=== PATIENT | female | born 1995 | race African-American/Black ===

== ENCOUNTER 2019-06-19 16:53 | Observation (INO) | payer SELFPAY ==
[~2019-06-19] VITALS: Ht 162.6 cm; Wt 77.4 kg
[~2019-06-19 16:53] MED LIST: DEPO-PROVER400 MG/ML IM; FLEXERIL 1010 MG/TAB PO; NORCO 325 MG-51 TAB PO; ULTRAM 50MG TAB50 MG PO; ZOFRAN 4MG T4 MG/TAB PO; ZOFRAN ODT4 MG PO
[2019-06-19 17:36] LABS: BASO # 0.1 (0.0-0.2); BASO % 0.4 % (0.0-2.0); EOS # 0.1 (0.0-0.7); EOS % 0.6 % (0-4.0); GRAN % 77.1 % (42.2-75.2); HEMOGLOBIN 11.4 g/dl (12.5-16.0); LYMPH # 1.6 (1.2-3.4); LYMPH % 12.5 % (20.0-51.0); MEAN CELL VOLUME 86 fl (80.0-100.0); MEAN CORPUSCULAR HEMOGLOBIN 28 pg (27.0-31.0); MEAN CORPUSCULAR HGB CONC 32 g/dl (33.0-37.0); MEAN PLATELET VOLUME 9.2 fl (7.4-10.4); MONO # 1.2 (0.1-0.6); RED BLOOD COUNT 4.09 M/mm3 (4.10-5.30); REDCELL DISTRIBUTION WIDTH-CV 13.8 % (11.5-14.5)
[2019-06-19 17:41] LABS: HEMATOCRIT 35.2 % (37.0-47.0); PLATELET COUNT 602 K/mm3 (130-400)
[2019-06-19 17:43] LABS: ALANINE AMINOTRANSFERASE 17 U/L (9-52); ALBUMIN 3.9 gm/dL (3.5-5.0); ALKALINE PHOSPHATASE 101 U/L (50-136); ANION GAP 12 mmol/L (7-16); AST,SGOT 31 U/L (15-37); BILIRUBIN,TOTAL 0.4 mg/dL (0.0-1.0); BLOOD UREA NITROGEN 3 mg/dL (7-17); CALCIUM 9.5 mg/dL (8.4-10.2); CARBON DIOXIDE 25 mmol/L (22-30); CHLORIDE 100 mmol/L (98-107); CREATININE, serum 0.43 (0.52-1.25); GLUCOSE 66 mg/dL (74-106); LIPASE < 10 U/L (23-300); POTASSIUM 3.8 mmol/L (3.4-5.0); SODIUM 137 mmol/L (137-145); TOTAL PROTEIN 8.1 gm/dL (6.4-8.2)
[2019-06-19 17:56] LABS: C-REACTIVE PROTEIN 22.1 mg/dL (0.0-0.9)
[2019-06-19 18:53] LABS: COLLECTION METHOD CLEAN CATCH
[2019-06-19 19:02] LABS: MUCOUS Present /lpf; PH 6 (5-8); SQUAMOUS EPITHELIAL 0-2 /hpf; URINE APPEARANCE Clear; URINE BACTERIA None Seen /hpf; URINE BILIRUBIN Negative (NEGATIVE); URINE BLOOD Negative (NEGATIVE); URINE COLOR Yellow; URINE GLUCOSE Negative (NEGATIVE); URINE KETONE 2+ (NEGATIVE); URINE LEUKOCYTE ESTERASE Negative (NEGATIVE); URINE NITRATE Negative (NEGATIVE); URINE PROTEIN(semi-quant) Negative (NEGATIVE); URINE RBC 0-2 /hpf
[2019-06-19 20:28] VITALS: BP 121/72; PULSE 93; TEMP 98.3
--- NOTE | 2019-06-19 21:20 | NUR ---
Patient arrived to medical floor at 2029. Assessment complete. Lungs clear. Heart sounds normal. Bowels active x4. Pulses strong throughout. No edema noted. Rating ABD pain 9/10 provided with PRN morphine. Also reports nausea. Provided with PRN zofran. INT to right AC without complications. Orientated to medical floor. All questions answered. Denies needs at this time. Call light in reach.
--- NOTE | 2019-06-19 23:07 | NUR ---
Patient reports increased pain 1 hour after dose of morphine. Spoke with Dr. Cortez discontinue morphine and change to dilaudid 1mg Q4H PRN pain. Will provide to patient
[2019-06-19 23:54] VITALS: BP 123/85; PULSE 103; TEMP 99.1
--- NOTE | 2019-06-20 00:13 | NUR ---
Resting in bed. Call light in reach.
--- NOTE | 2019-06-20 01:16 | NUR ---
Patient crying and screaming due to upper right ABD pain 10/10. Radiating to chest, and feels like "I cant breathe." VS stable. Warm pack provided. Spoke with Dr. Cortez. Patient having increased anxiety. repeat dilaudid dose now and add ativan 0.5 mg Q6H PRN. Will provide to patient.
--- NOTE | 2019-06-20 01:33 | NUR ---
After adminstration of dilaudid and ativan patient stated "I think my chest pain is because my breast are so heavy." Provided with warm pack and extra pillows. Denies other needs. Call light in reach.
[2019-06-20 03:31] VITALS: BP 117/76; PULSE 117; TEMP 99.4
--- NOTE | 2019-06-20 05:42 | NUR ---
Patient received morphine 2117. Reported increased pain by 2229. Spoke with Dr. Cortez. Orders to discontinue morphine and change to dilaudid given. Provided patient with dilaudid at 2318. 0110 patient screaming and tearful in pain. Stating severe ABD pain radiating to chest and difficulty breathing. Patient appears anxious. Provided warm pack at this time. Spoke with Dr. Cortez, order for one time dose of dilaudid and to start PRN ativan Q6H. Provided to patient. Patient stated after administration of medications "I think my chest pain is because my breast are so heavy." Patient able to rest well after. Otherwise uneventful night. Resting in bed this AM. Call light in reach.
--- NOTE | 2019-06-20 07:07 | NUR ---
Report given to ORI Lemons
[2019-06-20 08:25] VITALS: BP 125/82; PULSE 110; TEMP 98.8
--- NOTE | 2019-06-20 08:35 | NUR ---
Pt calls out for pain medication. Pt curled over in bed yelling in pain. She states her pain is a 10/10. Given PRN dilaudid and heat pack. Pt also appears very anxious, hyperventilating and stating she cant breath. Breathing techniques reviewed with pt along with giving her PRN ativan. Pt the requests popsicle and apple juice.
--- NOTE | 2019-06-20 08:45 | NUR ---
Pt appears to be more relaxed, laying in bed. States pain has improved, rating 7/10. Updated on plan of care includidng EGD this afternoon. NPO after [address] Cortez. Denies any other needs.
[2019-06-20 09:37] LABS: BASO % 0.3 % (0.0-2.0); EOS % 0.1 % (0-4.0); GRAN % 82.9 % (42.2-75.2); HEMOGLOBIN 10.7 g/dl (12.5-16.0); LYMPH # 1.2 (1.2-3.4); LYMPH % 8.7 % (20.0-51.0); MEAN CELL VOLUME 86 fl (80.0-100.0); MEAN CORPUSCULAR HEMOGLOBIN 28 pg (27.0-31.0); MEAN CORPUSCULAR HGB CONC 33 g/dl (33.0-37.0); MEAN PLATELET VOLUME 9.1 fl (7.4-10.4); MONO % 7.5 % (1.7-9.3); PLATELET COUNT 541 K/mm3 (130-400); RED BLOOD COUNT 3.85 M/mm3 (4.10-5.30); REDCELL DISTRIBUTION WIDTH-CV 13.8 % (11.5-14.5)
--- NOTE | 2019-06-20 09:39 | NUR ---
SW met with patient to discuss discharge planning. Patient lives independently at home with her sister. Patient does not have a PCP but would like to be scheduled with a provider from the [facility]. Patient obtains medications from [facility] Patient reports she has had issues in the past with obtaining medications but no difficulties currently. SW reported that the [facility] can provide medication assistance. Patient is independent with ADLs and does not require any DME or home health services. SW does not anticipate any discharge needs.
[2019-06-20 09:41] LABS: HEMATOCRIT 32.9 % (37.0-47.0)
[2019-06-20 09:43] LABS: ALANINE AMINOTRANSFERASE 19 U/L (9-52); ALBUMIN 3.4 gm/dL (3.5-5.0); ALKALINE PHOSPHATASE 92 U/L (50-136); ANION GAP 14 mmol/L (7-16); AST,SGOT 25 U/L (15-37); BILIRUBIN,TOTAL 0.5 mg/dL (0.0-1.0); CALCIUM 8.7 mg/dL (8.4-10.2); CARBON DIOXIDE 21 mmol/L (22-30); CHLORIDE 99 mmol/L (98-107); CREATININE, serum 0.43 (0.52-1.25); GLUCOSE 75 mg/dL (74-106); POTASSIUM 3.2 mmol/L (3.4-5.0); SODIUM 134 mmol/L (137-145); TOTAL PROTEIN 7.1 gm/dL (6.4-8.2)
--- NOTE | 2019-06-20 09:46 | NUR ---
Pt given PRN toradol for 8/10 pain. Pt resting in bed, denies any needs.
[2019-06-20 09:55] LABS: BLOOD UREA NITROGEN < 2 mg/dL (7-17); C-REACTIVE PROTEIN 22.4 mg/dL (0.0-0.9)
--- NOTE | 2019-06-20 10:09 | NUR ---
Pt is sleeping soundly in bed at this time. Does not appear to be in any pain or discomfort while sleeping.
--- NOTE | 2019-06-20 12:27 | NUR ---
Pt to endo with ORI Jones
--- NOTE | 2019-06-20 13:18 | NUR ---
Pt returned back to room 352 from EGD. She is awake and A/Ox4. She does report 9/10 pain, given PRN dilaudid. Given grape juice upon request. Pt states she just wants to rest. Denies any other needs.
--- NOTE | 2019-06-20 16:22 | NUR ---
Pt continues to sleep soundly in bed, does not wake when staff enters room.
[2019-06-20 16:56] VITALS: BP 137/81; PULSE 100; TEMP 98.8
--- NOTE | 2019-06-20 18:14 | NUR ---
Pt states her pain is "getting better" and she feels like her pain is "moving down my abdomen." She does state her pain is a 7/10 and does ask for PRN dilaudid though, which was given. Pt seems to be in better spirits. Pt updated on plan of care, expressed understanding.
[2019-06-20 19:14] VITALS: BP 116/63; PULSE 107; TEMP 100.2
--- NOTE | 2019-06-20 19:35 | NUR ---
Resting in bed. Assessment complete. Lungs clear. Heart sounds normal. Bowels active x4. Pulses strong throughout. No edema noted. IV right AC infusing without complications. Rating pain 6/10. Will provide dilaudid at next time avaliable. Denies other needs. Call light in reach.
--- NOTE | 2019-06-20 20:00 | NUR ---
Celsa JONES notified of elevated Ddimer. No orders at this time.
--- NOTE | 2019-06-20 22:05 | NUR ---
Rating pain 6/10. Provided with PRN dilaudid.
[2019-06-20 23:17] LABS: TRICYCLIC ANTIDEPRESS URINE NEGATIVE
[2019-06-20 23:25] VITALS: BP 110/76; PULSE 93; TEMP 98.9
--- NOTE | 2019-06-21 00:03 | NUR ---
Resting in bed. Denies pain. Would like to know if diet can be advanced. Educated patient to speak with doctors in AM. Provided with beef broth at this time. Denies other needs. Call light in reach.
[2019-06-21 03:40] VITALS: BP 121/82; PULSE 99; TEMP 97.9
--- NOTE | 2019-06-21 04:13 | NUR ---
Reports continued pain after dilaudid. Provided with PRN torodol.
--- NOTE | 2019-06-21 06:23 | NUR ---
Patient required PRN dilaudid and torodol for pain control throughout night. Did not have bowel movement. Otherwise uneventful. Resting in bed this AM. Call light in reach.
--- NOTE | 2019-06-21 06:55 | NUR ---
appears to be dozing, bedside shift report received from ORI Mendoza, requesting something for pain 07/07
--- NOTE | 2019-06-21 06:59 | NUR ---
Report given to ORI Caldera
--- NOTE | 2019-06-21 07:15 | NUR ---
medicated with dilaudid 1mg slow iV for c/os pain 07/07
--- NOTE | 2019-06-21 07:57 | NUR ---
states relief from pain med and is sitting up talking on phone, provided apple juice and chicken broth and instructed on ordering clear liquid reardon, full assessment completed, see interventions for further info, states pain is epigastric and right side and that it is better this am
--- NOTE | 2019-06-21 08:09 | NUR ---
to raiology per WC for CT chest/abd
[2019-06-21 08:17] LABS: BASO % 0.2 % (0.0-2.0); EOS # 0.1 (0.0-0.7); EOS % 0.9 % (0-4.0); GRAN # 6.2 (1.4-6.5); GRAN % 68.8 % (42.2-75.2); HEMOGLOBIN 10.1 g/dl (12.5-16.0); LYMPH # 1.9 (1.2-3.4); LYMPH % 20.6 % (20.0-51.0); MEAN CELL VOLUME 86 fl (80.0-100.0); MEAN CORPUSCULAR HEMOGLOBIN 28 pg (27.0-31.0); MEAN CORPUSCULAR HGB CONC 32 g/dl (33.0-37.0); MEAN PLATELET VOLUME 9.2 fl (7.4-10.4); MONO # 0.8 (0.1-0.6); MONO % 9.2 % (1.7-9.3); PLATELET COUNT 546 K/mm3 (130-400); RED BLOOD COUNT 3.67 M/mm3 (4.10-5.30); REDCELL DISTRIBUTION WIDTH-CV 13.9 % (11.5-14.5)
[2019-06-21 08:21] LABS: HEMATOCRIT 31.5 % (37.0-47.0)
[2019-06-21 08:24] LABS: ANION GAP 8 mmol/L (7-16); CALCIUM 8.6 mg/dL (8.4-10.2); CARBON DIOXIDE 27 mmol/L (22-30); CHLORIDE 104 mmol/L (98-107); CREATININE, serum 0.46 (0.52-1.25); GLUCOSE 103 mg/dL (74-106); POTASSIUM 3.3 mmol/L (3.4-5.0); SODIUM 139 mmol/L (137-145)
[2019-06-21 08:32] LABS: BLOOD UREA NITROGEN < 2 mg/dL (7-17)
--- NOTE | 2019-06-21 08:36 | NUR ---
returned from radiology per WC and back in bed
[2019-06-21 09:13] VITALS: BP 124/88; PULSE 89; TEMP 98.2
--- NOTE | 2019-06-21 09:15 | NUR ---
IV fluids restarted, informed her Dr Cortez advanced her diet to a regular, verbalizes understanding
--- NOTE | 2019-06-21 09:39 | NUR ---
Initial visit; Patient and Leather Softener talked about their mutual experiences with colitis. Leather Softener talked about her diet and urged Armond to work with Dietitian. Leather Softener wished Armond well and offered God's blessings.
[2019-06-21 11:14] VITALS: BP 113/73; PULSE 71
--- NOTE | 2019-06-21 11:36 | NUR ---
Dr Yang and care team in to see patient, encouraged her to order something to eat to see how she tolerates, verbalizes understanding, c/o pain and medicated with toradol 30mg slow IV,
--- NOTE | 2019-06-21 13:00 | NUR ---
has had some regular food and began to have some abdominal pain, encouraged her to get up and walk in the [place], verbalizes understanding
--- NOTE | 2019-06-21 13:57 | NUR ---
states has been up and ambulated in ley, after ambulating was able to have bowel movement that she stated was normal but a little loose, had general diet and ate approx 70%, c/o pain an medicated with hydrocodone 5mg 1 tab, will get up and take a walk again soon
--- NOTE | 2019-06-21 15:00 | NUR ---
resting in bed, asking about going home, explained to her that need to wait for the Dr to given orders and that IV needs to stay in until discharge
--- NOTE | 2019-06-21 15:30 | NUR ---
Dr Cortez in to see patient, will plan discharge
[2019-06-21] MEDS ORDERED: CIPRO 500MG TA500 MG PO (15:40)
[2019-06-21] MEDS ORDERED: FLAGYL500 MG PO (15:41)
--- NOTE | 2019-06-21 15:59 | NUR ---
discharge instructions given to patient, verbalizes understanding, will call when her ride is here
--- NOTE | 2019-06-21 16:00 | NUR ---
discharged ambulatory
== END 2019-06-21 16:00 | disposition home or self-care (01) ==
LOC: COL.ER 16:53 → MEDICAL 19:28
PROVIDERS: Nurse Practitioner; Physician Assistant; ADMIT Surgery
DX: K50.10 Crohn's disease of large intestine without complications (principal); R10.11 Right upper quadrant pain; R00.0 Tachycardia, unspecified; D47.3 Essential (hemorrhagic) thrombocythemia; E87.1 Hypo-osmolality and hyponatremia; D64.9 Anemia, unspecified; F17.210 Nicotine dependence, cigarettes, uncomplicated; K21.9 Gastro-esophageal reflux disease without esophagitis; G47.33 Obstructive sleep apnea (adult) (pediatric)
CPT/HCPCS: 99223; G0378; J0744; J1170; J1885; J2060; J2212; J2270; J2405; J2704; J7030; Q9967

== ENCOUNTER 2020-04-01 00:46 | Outpatient (CLI) | payer MEDICAID ==
[~2020-04-01] VITALS: Ht 160 cm; Wt 89.1 kg
[~2020-04-01 00:46] MED LIST changes: +CIPRO 500MG TA500 MG PO; +FLAGYL500 MG PO
--- NOTE | 2020-04-01 00:50 | NUR ---
Here with c/o n/v for past 2 days- was seen in office and told Dr Cruz according to pt. Does not appear to be nauseated. Did not come with container for emesis has not asked for one. Social during interview. Says urine is light and clear. Boyfriend is waiting in car for her.
[2020-04-01 01:06] VITALS: BP 112/73; PULSE 88; TEMP 98.5
[2020-04-01 01:17] VITALS: BP 112/73; PULSE 88; TEMP 98.5
== END 2020-04-01 02:25 | disposition home or self-care (01) ==
LOC: LDRO 00:46
DX: O26.893 Other specified pregnancy related conditions, third trimester (principal); R11.2 Nausea with vomiting, unspecified; Z3A.29 29 weeks gestation of pregnancy

== ENCOUNTER 2020-05-29 09:22 | Inpatient (IN) | payer MEDICAID ==
[~2020-05-29] VITALS: Ht 160 cm; Wt 90.9 kg
[2020-05-29] VITALS (49 sets, daily range): BP systolic 89–147; BP diastolic 51–93; PULSE 60–114; TEMP 97.8–99
--- NOTE | 2020-05-29 09:20 | NUR ---
Patient ambulatory to LR4 with significant other, changed into gown, FHR/TOCO monitors placed and explained. Patient is a direct admit from the office for IUGR per Dr. Cruz. Patient denies regular contractions/leaking of fluid/vaginal bleeding/decreased movement. Plan of care discussed. Questions answered. Oriented to labor room. Assessment completed. Patient denies any STDs or use of drugs recently at this time. Consents gone over and signed. packet given and explained. 1015: IV started in left wrist per Juan REHMAN, blood obtained and to lab, LR infusing. 1020: Pitocin induction discussed and patient agrees. Pitocin started at 2 Mu per protocol.
[2020-05-29] MEDS ORDERED: PRENATAL TABLET PO (10:18)
[2020-05-29] MEDS ORDERED: TUMS ULTRA ST1000 MG PO (10:19)
[2020-05-29 11:13] LABS: BASO % 0.5 % (0.0-2.0); EOS # 0.2 (0.0-0.7); GRAN # 4.6 (1.4-6.5); GRAN % 57.9 % (42.2-75.2); HEMOGLOBIN 11.5 g/dl (12.5-16.0); LYMPH # 2.4 (1.2-3.4); LYMPH % 29.8 % (20.0-51.0); MEAN CELL VOLUME 87 fl (80.0-100.0); MEAN CORPUSCULAR HEMOGLOBIN 28 pg (27.0-31.0); MEAN CORPUSCULAR HGB CONC 33 g/dl (33.0-37.0); MONO # 0.8 (0.1-0.6); MONO % 9.5 % (1.7-9.3); PLATELET COUNT 228 K/mm3 (130-400); RED BLOOD COUNT 4.05 M/mm3 (4.10-5.30); REDCELL DISTRIBUTION WIDTH-CV 13.1 % (11.5-14.5)
[2020-05-29 11:15] LABS: HEMATOCRIT 35.4 % (37.0-47.0)
[2020-05-29 12:03] LABS: TRICYCLIC ANTIDEPRESS URINE NEGATIVE
--- NOTE | 2020-05-29 12:20 | NUR ---
Dr Cruz at bedside assessing patient and FHR strip. 1224: SVE per physician and AROM at this time with clear fluid noted. Dr. Cruz orders to continue to increase pitocin to 30mU if needed. 1240: Patient requesting epidural and LKadeAugusto CHAIN BUILDER notified. 1250: Patient off monitor to void. Patient sitting on edge of bed and L.Augusto CHAIN BUILDER at bedside. Difficulty tracing FHR due to materanal position. 1300: Test dose given and patient tolerates well. 1306: Patient repositioned and safety precautions/plan of care discussed. 1310: Dr. Cruz at bedside and SVE . Patient repositioned. 1325: Jeong catheter placed and patient tolerates well. SVE- and patient turned left lateral with right leg resting in stirrup.
--- NOTE | 2020-05-29 15:45 | NUR ---
Dr Cruz at bedside and assessing patient and FHR strip. SVE per phsician- and orders to continue to increase pitocin. 1630: Dr. Cruz at bedside and SVE per physician and orders to continue to increase pitocin at this time.
--- NOTE | 2020-05-29 18:25 | NUR ---
1824- BEDSIDE SHIFT REPORT RECEIVED, CARE ASSUMED. PT RESTING QUIETLY, COMFORTABLE WITH EPIDURAL. DENIES NEEDS AT THIS TIME. 1829- SVE BY THIS NURSE, , PITOCIN INCREASED TO 30. 1909- DR ALLEN CALLS AND IS UPDATED CHARTED. 1929- PT UPDATED ON PLAN OF CARE AND QUESTIONS ANSWERED. 1949- DR ALLEN AT BEDSIDE, SVE BY , SHE ANSWERS PT'S QUESTIONS. 2004- PT TURNED TO RIGHT SIDE FOR COMFORT. 2039- DR ALLEN AT BEDSIDE, SVE /0. 2114- DR ALLEN AT BEDSIDE, SVE /+1. PT TURNED TO LEFT TILT WITH PEANUT BALL. MONITORS ADJUSTED.
--- NOTE | 2020-05-29 21:40 | NUR ---
2139- DR ALLEN AT BEDSIDE, SVE COMPLETE +2. DISCUSSED PUSHING WITH PT AND ANSWERED QUESTIONS. 2145- PT BEGINS COACHED PUSHING WITH CONTRACTIONS. AT BEDSIDE. 2151- SPONTANEOUS VAGINAL DELIVERY OF VIABLE MALE, TO MOTHER'S ABDOMEN AND CARE OF NURSERY STAFF. 2153- SPONTANEOUS DELIVERY OF PLACENTA, EXAMINED BY DR ALLEN. REPAIR OF SUPERFICIAL PERINEAL LACERATION IN PROGRESS. 2199- REPAIR COMPLETED. PERICARE PROVIDED. ICEPACK TO PERINEUM. FEET DOWN FROM FOOTPLATES AND RECOVERY STARTED.
[2020-05-30] VITALS (7 sets, daily range): BP systolic 111–142; BP diastolic 62–75; PULSE 79–89; TEMP 97.7–98.5
--- NOTE | 2020-05-30 01:10 | NUR ---
0110- IV TO SALINE LOCK, EPIDURAL CATHETER REMOVED WITH BLUE TIP INTACT. PT ASSISTED TO AMBULATE TO BATHROOM. PT UNABLE TO VOID. PT PERFORMS PERICARE, ASSISTED TO DRESS IN OWN CLOTHES. CLEAN PAD AND PANTIES PROVIDED. NORMAL LOCHIA DISCUSSED. 0125- PT ASSISTED TO AMBULATE TO ROOM 208. BELONGINGS SENT WITH PT. PT ORIENTED TO ROOM AND CALL LIGHTS. PLAN OF CARE DISCUSSED AND QUESTIONS ANSWERED. NO FURTHER NEEDS AT THIS TIME.
--- NOTE | 2020-05-30 09:33 | NUR ---
SW's responded to consult for screening for presence of illegal drugs in patient and baby. The urine drug screen for both patient and baby came back negative. SW's met with the patient and father of baby, Gissell Kya. The patient lives in [place] with the father of baby. She states that father of baby's mother lives down the street from them and her mother lives in [place]. They report that they have a carseat and all supplies for baby. She states that she is already on WIC. ZULMA addressed the patient's past drug use. 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 She states that she stopped using when she found out she was . She states that she has no concerns about using again. The patient and father of baby have no concerns about returning home with baby. They were interested in [facility]'s Resource Guide. ZULMA provided the guide to them. ZULMA updated the patient's RN on the above information. The baby's meconium stat is pending.
[2020-05-30] MEDS ORDERED: IBU800 M1 PO (09:43)
[2020-05-31 04:30] VITALS: BP 117/66; PULSE 71; TEMP 97.9
[2020-05-31 09:03] VITALS: BP 131/75; PULSE 79; TEMP 97.8
--- NOTE | 2020-05-31 17:24 | NUR ---
Discharge instructions reviewed, deny questions. Escorted off unit.
== END 2020-05-31 17:25 | disposition home or self-care (01) | DRG 806 ==
LOC: LDR 09:22 → OB 09:22
PROVIDERS: ADMIT Obstetrics & Gynecology
PROC: 10E0XZZ Delivery of Products of Conception, External Approach (ICD-10-PCS; principal; 2020-05-29)
PROC: 10907ZC Drainage of Amniotic Fluid, Therapeutic from Products of Conception, Via Natural or Artificial Opening (ICD-10-PCS; 2020-05-29)
PROC: 0UQMXZZ Repair Vulva, External Approach (ICD-10-PCS; 2020-05-29)
PROC: 0UQGXZZ Repair Vagina, External Approach (ICD-10-PCS; 2020-05-29)
DX: O36.5930 Maternal care for other known or suspected poor fetal growth, third trimester, not applicable or unspecified (principal); O98.42 Viral hepatitis complicating childbirth; Z37.0 Single live birth; O71.4 Obstetric high vaginal laceration alone; O99.824 Streptococcus B carrier state complicating childbirth; K21.9 Gastro-esophageal reflux disease without esophagitis; O99.62 Diseases of the digestive system complicating childbirth; O71.82 Other specified trauma to perineum and vulva; O69.1XX0 Labor and delivery complicated by cord around neck, with compression, not applicable or unspecified; B19.20 Unspecified viral hepatitis C without hepatic coma; Z3A.37 37 weeks gestation of pregnancy
CPT/HCPCS: J2405; J2540; J2590; J7120

== ENCOUNTER 2024-03-19 22:30 | Emergency (ER) | payer MEDICAID ==
[~2024-03-19] VITALS: Ht 162.6 cm; Wt 92.0 kg
[~2024-03-19 22:30] MED LIST changes: +IBU800 M1 PO; +PRENATAL TABLET PO; +TUMS ULTRA ST1000 MG PO
[2024-03-19 22:32] VITALS: TEMP 97.8
[2024-03-19 23:18] LABS: TRICYCLIC ANTIDEPRESS URINE NEGATIVE (NEGATIVE)
[2024-03-19] MEDS ORDERED: ZOFRAN ODT4 MG PO (23:32)
[2024-03-19 23:33] LABS: COLLECTION METHOD CLEAN CATCH
[2024-03-19 23:35] LABS: ALANINE AMINOTRANSFERASE 38 U/L (0-55); ALKALINE PHOSPHATASE 132 U/L (40-150); ANION GAP 15 mmol/L (7-16); AST,SGOT 42 U/L (5-34); CALCIUM 9.7 mg/dL (8.4-10.2); CHLORIDE 105 mEq/L (98-107); GLUCOSE 70 mg/dL (70-99); POTASSIUM 3.7 mEq/L (3.5-4.5); SODIUM 134 mEq/L (136-145); TOTAL PROTEIN 7.9 g/dl (6.2-8.1)
[2024-03-19 23:41] LABS: URINE APPEARANCE CLOUDY (CLEAR/HAZY); URINE BLOOD 2+ (NEGATIVE); URINE COLOR Dark Yellow (YELLOW); URINE GLUCOSE NEGATIVE (NEGATIVE); URINE KETONE 4+ (NEGATIVE); URINE NITRATE NEGATIVE (NEGATIVE); URINE PROTEIN(semi-quant) 2+ (NEGATIVE)
[2024-03-19 23:41] LABS: BLOOD UREA NITROGEN < 5 mg/dL (7-19)
[2024-03-20 00:04] LABS: MUCOUS PRESENT (NOT PRESENT); SQUAMOUS EPITHELIAL >50 /hpf (0-10); URINE BACTERIA MANY /hpf (NONE SEEN); URINE RBC >50 /hpf (0-2); URINE WBC 20-50 /hpf (0-2)
[2024-03-20 00:41] LABS: BASO % 0.5 % (0.0-2.0); EOS % 0.3 % (0.0-4.0); GRAN # 6.5 K/mm3 (1.4-6.5); GRAN % 75.6 % (42.2-75.2); HEMOGLOBIN 10.9 g/dl (12.5-16.0); LYMPH # 1.5 K/mm3 (1.2-3.4); LYMPH % 17.4 % (20.0-51.0); MEAN CELL VOLUME 88 fl (80.0-100.0); MEAN CORPUSCULAR HEMOGLOBIN 29 pg (27-31); MEAN CORPUSCULAR HGB CONC 33 g/dl (33.0-37.0); MEAN PLATELET VOLUME 9.7 fl (7.4-10.4); MONO # 0.5 K/mm3 (0.1-0.6); MONO % 5.7 % (1.7-9.3); PLATELET COUNT 274 K/mm3 (130-400); RED BLOOD COUNT 3.72 M/mm3 (4.10-5.30); REDCELL DISTRIBUTION WIDTH-CV 12.6 % (11.5-14.5)
[2024-03-20 00:42] LABS: HEMATOCRIT 32.9 % (37.0-47.0)
[2024-03-20] MEDS ORDERED: Cefuroxime 250 MG TAB PO ONE (01:00)
[2024-03-20] MEDS ORDERED: CEFTIN500 MG PO (01:02)
[2024-03-20 01:16] VITALS: BP 105/94; PULSE 103
--- NOTE | 2024-03-20 14:54 | NUR ---
utility service worker was notified patient's 3 year old child has been wandering around the hospital. On this date, patient was in the radiology department and security found child in OB. SW was notified the mother was not concerned that the child was missing because the hospital is "locked" however it is not locked. Patient was vomiting and asked to be evaluated in the ER however patient refused to stay to be evaluated. SW was unable to speak with patient due to her leaving the hospital. Upon reviewing patient's chart, it appears patient took an unknown "little blue pill" yesterday. Due to all of these concerns, ZULMA made a CPS report. Intake ID [id number]
== END 2024-03-20 01:16 | disposition home or self-care (01) ==
LOC: COL.ER 22:30
PROVIDERS: Nurse Practitioner
DX: O23.43 Unspecified infection of urinary tract in pregnancy, third trimester (principal); O9A.213 Injury, poisoning and certain other consequences of external causes complicating pregnancy, third trimester; T65.91XA Toxic effect of unspecified substance, accidental (unintentional), initial encounter; O99.333 Smoking (tobacco) complicating pregnancy, third trimester; F17.200 Nicotine dependence, unspecified, uncomplicated; Z3A.32 32 weeks gestation of pregnancy

== ENCOUNTER → 2024-03-20 | Outpatient (CLI) | payer SELFPAY ==
[~2024-03-20] MED LIST changes: +CEFTIN500 MG PO
== END ==
LOC: COL.RAD 05:12
DX: Z34.93 Encounter for supervision of normal pregnancy, unspecified, third trimester (principal); Z3A.31 31 weeks gestation of pregnancy

== ENCOUNTER 2024-04-03 21:20 | Outpatient (CLI) | payer MEDICAID ==
--- NOTE | 2024-04-03 21:35 | NUR ---
PT AMBULATED TO LR4. PT TO THE BATHROOM AND CHANGED INTO CLEAN GOWN. PT COMPLAINS OF NAUSEA AND "NOT BEING ABLE TO KEEP ANYTHING DOWN." THE PATIENT STATES THAT FELICIANO HAS WORKED FOR HER IN THE PAST BUT SHE NO LONGER HAS ANY. PT PLACED ON EFM. CATEGORY 1 TRACING WITH ACCELS, NO DECELS. NO CONTRACTIONS NOTED. PT DOES NOT HAVE HISTORY, QUESTIONS ASKED AND ANSWERED. SEE ADMISSION INTAKE. THE PATIENT DENIES LOSS OF FLUID OR VAGINAL BLEEDING.
[2024-04-03 22:30] VITALS: BP 102/55; PULSE 75; TEMP 98.7
[2024-04-03] MEDS ORDERED: Home Ondansetron ODT 4 MG #2 ODT/PACK PO PRN (22:30)
[2024-04-03 23:20] LABS: COLLECTION METHOD CATHETER
[2024-04-03 23:25] LABS: BASO % 0.5 % (0.0-2.0); EOS # 0.1 K/mm3 (0.0-0.7); EOS % 1.4 % (0.0-4.0); GRAN # 5.4 K/mm3 (1.4-6.5); GRAN % 62.9 % (42.2-75.2); HEMOGLOBIN 10.2 g/dl (12.5-16.0); LYMPH # 2.4 K/mm3 (1.2-3.4); LYMPH % 27.6 % (20.0-51.0); MEAN CELL VOLUME 87 fl (80.0-100.0); MEAN CORPUSCULAR HEMOGLOBIN 30 pg (27-31); MEAN CORPUSCULAR HGB CONC 34 g/dl (33.0-37.0); MEAN PLATELET VOLUME 10.2 fl (7.4-10.4); MONO # 0.6 K/mm3 (0.1-0.6); MONO % 7.1 % (1.7-9.3); PLATELET COUNT 260 K/mm3 (130-400); RED BLOOD COUNT 3.44 M/mm3 (4.10-5.30); REDCELL DISTRIBUTION WIDTH-CV 12.7 % (11.5-14.5)
[2024-04-03 23:26] LABS: HEMATOCRIT 29.9 % (37.0-47.0)
[2024-04-03 23:33] LABS: URINE APPEARANCE CLOUDY (CLEAR/HAZY); URINE BLOOD 2+ (NEGATIVE); URINE COLOR YELLOW (YELLOW); URINE GLUCOSE NEGATIVE (NEGATIVE); URINE KETONE 2+ (NEGATIVE); URINE NITRATE NEGATIVE (NEGATIVE); URINE PROTEIN(semi-quant) 1+ (NEGATIVE); URINE UROBILINOGEN 0.2 E.U/dL (0.2-1.0)
[2024-04-03] MEDS ORDERED: cefTRIAXone 1 G,Lidocaine PF 1% 2.1 ML IM ONE (23:45)
[2024-04-03 23:54] LABS: HIV 1/2 Antibodies Non-Reactive; HIV-1p24 Antigen Non-Reactive
[2024-04-04 16:51] LABS: HEPATITIS B SURFACE ANTIGEN Negative (Negative)
== END 2024-04-03 23:30 | disposition home or self-care (01) ==
LOC: LDRO 21:20 → LDR 21:30 → LDRO 23:30
PROVIDERS: Obstetrics & Gynecology
DX: O26.899 Other specified pregnancy related conditions, unspecified trimester (principal); Z3A.00 Weeks of gestation of pregnancy not specified
CPT/HCPCS: OP; J0696

== ENCOUNTER 2024-05-16 12:00 | Inpatient (IN) | payer MEDICAID ==
[~2024-05-16] VITALS: Ht 162.6 cm; Wt 98.6 kg
[2024-05-16] VITALS (23 sets, daily range): BP systolic 104–139; BP diastolic 58–80; PULSE 65–107; TEMP 98.9
--- NOTE | 2024-05-16 12:15 | NUR ---
1213- PT WHEELED TO UNIT FROM ER. OREINTED TO ROOM AND CHANGED INTO GOWN. PT PLACED ON MONITORS. PT DEINED ANY LOF OR VB. PT SAID SHE WAS HAVING CX EVERY TWO MINUTES. SVE /0. 1230- CALLED DR CALLES TO INFORM HIM PT WAS HERE ON UNIT AND AND UPDATE HIM ABOUT PT HX AND SVE. DR CALLES GAVE ORDERS TO ADMIT HER AND RUN A CMP AND KALI URINE SCREEN WELL STANDARD LABS.
[2024-05-16] MEDS ORDERED: LR 1,000 ML IV SCH (13:00)
[2024-05-16] MEDS ORDERED: ROPivacaine PF 0.2% 200 ML IV ONE (13:04)
[2024-05-16] MEDS ORDERED: Penicillin G Potassium 5,000,000 UNITS in NS 100 ML IV ONE (13:15)
[2024-05-16 13:19] LABS: BASO # 0.1 K/mm3 (0.0-0.2); BASO % 0.7 % (0.0-2.0); EOS # 0.2 K/mm3 (0.0-0.7); EOS % 1.7 % (0.0-4.0); GRAN # 8.7 K/mm3 (1.4-6.5); GRAN % 69.1 % (42.2-75.2); HEMATOCRIT 37.3 % (37.0-47.0); HEMOGLOBIN 12.2 g/dl (12.5-16.0); LYMPH # 2.6 K/mm3 (1.2-3.4); LYMPH % 20.7 % (20.0-51.0); MEAN CELL VOLUME 88 fl (80.0-100.0); MEAN CORPUSCULAR HEMOGLOBIN 29 pg (27-31); MEAN CORPUSCULAR HGB CONC 33 g/dl (33.0-37.0); MEAN PLATELET VOLUME 10.4 fl (7.4-10.4); MONO # 0.9 K/mm3 (0.1-0.6); MONO % 7.4 % (1.7-9.3); PLATELET COUNT 292 K/mm3 (130-400); RED BLOOD COUNT 4.22 M/mm3 (4.10-5.30); REDCELL DISTRIBUTION WIDTH-CV 13.2 % (11.5-14.5)
[2024-05-16 13:27] LABS: ALBUMIN 3.1 g/dL (3.5-5.0); BILIRUBIN,TOTAL 0.4 mg/dL (0.2-1.2); CALCIUM 9.8 mg/dL (8.4-10.2); CREATININE, serum 0.55 mg/dL (0.57-1.11); POTASSIUM 3.9 mEq/L (3.5-4.5); TOTAL PROTEIN 6.8 g/dl (6.2-8.1)
[2024-05-16 13:28] LABS: TRICYCLIC ANTIDEPRESS URINE NEGATIVE (NEGATIVE)
--- NOTE | 2024-05-16 13:41 | NUR ---
1327- BEN TO PT ROOM TO DISCUSS EPIDURAL. PT IN SITTING POSITION WITH BP AND O2 MONITORS ON. FLUID BOLUS OF 500 GIVEN AND LRS RUNNING. 1341- TEST DOSE. PT TOLERATED WELL. DIFFICULTY TRACING HEART TONES DURNING THIS TIME. PT REPOSITIONED TO WEDGE LEFT.
[2024-05-16] MEDS ORDERED: Naloxone 0.4 MG/ML VIAL IV PRN ×2 (14:00→17:00)
[2024-05-16] MEDS ORDERED: Ondansetron 4 MG/2 ML VIAL IV PRN (14:00)
[2024-05-16] MEDS ORDERED: diphenhydrAMINE 50 MG/ML 1 ML VIAL IV PRN (14:00)
[2024-05-16] MEDS ORDERED: diphenhydrAMINE 25 MG CAP PO PRN (14:00)
[2024-05-16] MEDS ORDERED: ePHEDrine 50 MG/10 ML VIAL IV PRN (14:00)
--- NOTE | 2024-05-16 14:10 | NUR ---
DR CALLES ON UNIT AND AT BEDSIDE. SVE /0. AROM AT 1411. CLEAR FLUID NOTED.
--- NOTE | 2024-05-16 14:17 | NUR ---
1417- DIFFICULTY TRACING FHT. PT WAS REPOSITIONED FROM RIGHT SIDE TO LEFT SIDE MULTIPLE TIMES IN AN ATTEMPT TO KEEP HEART TONES TRACING. 1423- DR CALLES WAS STILL ON UNIT AND CAME IN TO ASSESS. FHT RECOVERED AND CONTINUED TRACING AT THAT TIME. 1427- DECEL LASTING 70 SECONDS AND RETURNED TO BASELINE. 1430- DECELS, PT WAS BOLUSED WITH FLUID AND REPOSITIONED MULTIPLE TIMES IN AN ATTEMPT TO TRACE FHT. HEART TONES AUDIBLE IN THE 100'S DURING THIS PERIOD, BUT CONTINUED TO DECEL WITH CX. EPHEDRINE WAS GIVEN X2 TO ASSIST WITH DECREASED BP, AND PT WAS PLACED SITTING TO ASSIST WITH BP AND DECELS. 1452- DECELS IMPROVE WITH EPHEDRINE AND POSITION CHANGE.
--- NOTE | 2024-05-16 16:14 | NUR ---
1547- FHT NO LONGER TRACING. THIS RN AT BEDSIDE REPOSTIONING PT TRYING TO FIND HEART TONES. 1550- HEART TONES TRACING AGAIN. 1553- DIFFICULTY TRACING HEART TONES AGAIN. REPOSITIONED PT. CALLED CHARGE NURSE RICCI FOR ASSISTANCE. CALLED DR CALLES AND UPDATED HIM ON THE SITUATION. DR CALLES RECOMENDED PLACING A SCALP MONITOR ON BABY TO TRACE FHT. WE AGREED AND SAID WOULD CALL HIM BACK. 1600- SVE /+1. SCALP PLACED BY RICCI REHMAN. FHT RANGING BETWEEN 85-115. 1603- CALLED DR CALLES BACK, UPDATED, ASKED FOR HIM TO COME. 1612- DR CALLES AT BEDSIDE. PT COMPLETE AND PUSHING. 1614- SPONTANEOUS VAGINAL DELIVERY OF A VIABLE BABY GIRL. NUCHAL X1. BABY WAS PLACED ON MOTHERS CHEST AND STIMULATED. CORD WAS CUT AND WAS TAKEN TO THE WARMER BY NURSEY NURSE MARIA FERNANDA. SECOND DEGREE PERINEAL REPAIR. 1621- SPONTANEOUS DELIVERY OF THE PLACENTA. DR CALLES ORDERED IM METHERGINE DUE TO MATERNAL BLEEDING. PITOCIN STARTED. BLEEDING SLOWED. QBL 600. VS STABLE. PT REPOSITIONED TO .
[2024-05-16] MEDS ORDERED: LR & Oxytocin 500 ML IV SCH (17:00)
[2024-05-16] MEDS ORDERED: Loratadine 10 MG TAB PO PRN (17:00)
[2024-05-16] MEDS ORDERED: Acetaminophen 500 MG TAB PO SCH (17:00)
[2024-05-16] MEDS ORDERED: Ibuprofen 600 MG TAB PO SCH (17:00)
[2024-05-16] MEDS ORDERED: Magnes Hydrox (MOM) 80 MG/ML 30 ML CUP PO PRN (17:00)
[2024-05-16] MEDS ORDERED: Witch Hazel 50% Pads Bulk TUB TP PRN (17:00)
[2024-05-16] MEDS ORDERED: Phenylephrine/Mineral Oil/Petrolatum 57 GM TUBE RC PRN (17:00)
[2024-05-16] MEDS ORDERED: Measles/Mumps/Rubella Virus Vaccine Live w Diluent 0.5 ML VIAL SQ SCH (17:00)
[2024-05-16] MEDS ORDERED: Sennosides/Docusate 8.6-50 MG TAB PO SCH (17:00)
[2024-05-16] MEDS ORDERED: oxyCODONE 5 MG TAB PO PRN (17:00)
[2024-05-16] MEDS ORDERED: Mag/Al Hydrox/Simeth Susp 30 ML CUP PO PRN (17:00)
[2024-05-16] MEDS ORDERED: Methylergonovine 0.2 MG/ML 1 ML AMPUL IM ONE (17:00)
[2024-05-16] MEDS ORDERED: Penicillin G Potassium 2,500,000 UNITS in NS 100 ML IV SCH (17:06)
[2024-05-16] MEDS ORDERED: traZODone 50 MG TAB PO PRN (21:00)
[2024-05-17 00:45] VITALS: BP 116/72; PULSE 75; TEMP 97.6
[2024-05-17] MEDS ORDERED: MOTRIN 800800 MG/TAB PO (05:28)
[2024-05-17 09:00] VITALS: BP 104/65; PULSE 70; TEMP 97.8
--- NOTE | 2024-05-17 09:42 | NUR ---
pantry goods worker received a call from [facility] ZULMA Lexi [phone] wanting information on if pt is incarcerated or recently out. ZULMA advised she has not yet reviewed pt, but will follow-up shortly. ZULMA spoke with RN who reports an official consult for ZULMA was put in for difficult social situation. Pt reported to RN she was staying with her Dad and step-mom, but also reports to stay in a alf. Nurse reports this to be questionable. RN advised pt is waiting on a ride and as of 9:18am and is ready to go see in [place]. ZULMA informed NICU ZULMA Lexi that pt will be discharged and on the way to visit infant soon. ZULMA states she has not yet seen pt, but passed on the above information for discharge planning. Lexi informed ZULMA arrived late evening yesterday and was positive for meth, but mother was negative. Lexi states she made a CPS report on this already.
--- NOTE | 2024-05-17 10:52 | NUR ---
Initial visit; Patient thanked Investigator Fraud for offering congratulations and God's blessings for the of her daughter. Investigator Fraud mentioned what a great name she has chosen and she mentioned she had a son at home to welcome the new baby girl. Investigator Fraud wished her and her family well and God's blessings.
--- NOTE | 2024-05-17 15:00 | NUR ---
Discharge instructions and follow up care reviewed with pt and family at the bedside. Pt verbalized an understanding, agreed with the plan and states no questions or concerns. Pt reports she is ready to go to [facility] to see her baby in the NICU.
--- NOTE | 2024-05-17 16:09 | NUR ---
grove worker met with patient to complete intake and assessment. Patient delivered her baby and it was sent to the NICU at [facility]. Patient states she will have her grandmother that lives in [place], come and transport her to [facility] today, after she is discharged. Patient states that she has a 3 year old son that is staying with his "Aunties" while patient is in the hospital. Patient stated that the father's of her son and new daughter/ are not involved with the care and that she is pursuing action to get financial child support from them. Patient states that she is currently residing with her father at the address of [address] [place] [address] in [place], [place]. Patient states that she has a bed, clothing, bottles and supplies for her baby. Worker provided resource list and information on where to secure additional supplies as needed. Patient states that her mental health feels good at this time and she is not seeing a therapist. Worker provided resources on food resources and mental health support as well as a complete list of [facility]. Worker contacted Lexi Soliz, NICU social worker school at [facility] and advised of the above information. Lexi will meet with patient when she arrives at [facility]. Nursing stated that patient was give ephedrin during delivery and that could account for 's positive drug screen. Mother had a negative drug screen.
== END 2024-05-17 15:20 | disposition home or self-care (01) | DRG 806 ==
LOC: LDRO 12:00 → LDR 12:48 → OB 12:48
PROVIDERS: Obstetrics & Gynecology; ADMIT Obstetrics & Gynecology
PROC: 10E0XZZ Delivery of Products of Conception, External Approach (ICD-10-PCS; principal; 2024-05-16)
PROC: 0HQ9XZZ Repair Perineum Skin, External Approach (ICD-10-PCS; 2024-05-16)
DX: O99.214 Obesity complicating childbirth (principal); O98.42 Viral hepatitis complicating childbirth; Z37.0 Single live birth; O99.824 Streptococcus B carrier state complicating childbirth; Z3A.39 39 weeks gestation of pregnancy; O72.1 Other immediate postpartum hemorrhage; O70.0 First degree perineal laceration during delivery; B19.20 Unspecified viral hepatitis C without hepatic coma; O76 Abnormality in fetal heart rate and rhythm complicating labor and delivery
CPT/HCPCS: J2210; J2540; J2590; J2795; J7120